=== PATIENT | female | born 1965 ===

== ENCOUNTER 2017-04-07 16:23 | Observation (INO) | payer MEDICAID ==
[2017-04-07] MEDS ORDERED: Sodium Chloride 0.9% 1,000 ML IV STA (16:49)
[2017-04-07 17:11] LABS: BASO % 0.3 % (0.0-2.0); EOS # 0.1 K/uL (0.0-0.7); EOS % 0.7 % (0.0-4.0); LYMPH # 2.8 K/uL (1.0-4.3); LYMPH % 20.8 % (20.0-40.0); MEAN CELL VOLUME 88.9 fl (81.0-99.0); MEAN CORPUSCULAR HGB CONC 33.8 g/dL (33.0-37.0); MEAN PLATELET VOLUME 8.2 fl (7.2-11.7); MONO # 0.8 K/uL (0.0-0.8); MONO % 6.1 % (0.0-10.0); NEUT # 9.7 K/uL (1.8-7.0); NEUT % 72.1 % (50.0-75.0); RBC 4.33 Mil/uL (3.80-5.20); RED CELL DISTRIBUTION WIDTH 12.9 % (11.5-14.5); WHITE BLOOD COUNT 13.5 K/uL (4.8-10.8)
[2017-04-07 17:15] LABS: ALB/GLOB RATIO 1.6 (1.0-2.1); ALBUMIN 4.6 g/dL (3.5-5.0); ALT/SGPT 49 U/L (9-52); AST/SGOT 32 U/L (14-36); BLOOD UREA NITROGEN 11 mg/dl (7-17); CALCIUM 9.2 mg/dL (8.4-10.2); GFR AFRICAN-AMERICAN > 60; GFR NON-AFRICAN AMERICAN > 60; MAGNESIUM 1.7 MG/DL (1.6-2.3)
--- NOTE | 2017-04-07 18:14 | ED PDOC ---
HPI: Seizure Time Seen by Provider: 04/07/17 16:41 Chief Complaint (Nursing): Altered Mental Status Chief Complaint (Provider): Seizure History Per: Patient History/Exam Limitations: no limitations Recent Seizure Activity Began: Hours Ago: Number Of Seizures: Multiple (Several seizure episodes throughout the day) Precipitating Factor(s): Decreased Sleep, Recent Change In Medication Or Dose Additional Complaint(s): 51 y/o female with a past medical history of seizures who presents to the emergency department after experiencing multiple seizure throughout the course of the day prior to arrival. Reports being non compliant with medications because of too much stress at home. Admits experiencing anxiety, decreased sleep , and not eating properly. Denies headache, focal weakness, blurry vision, use of drugs, or ingestion of alcohol. Of note, patient was given Versed on the field for seizure like activity. Past Medical History Reviewed: Historical Data, Nursing Documentation, Vital Signs Vital Signs: Last Vital Signs Temp 97.3 F L 04/08/17 08:08 Pulse 76 04/08/17 09:00 Resp 18 04/08/17 08:08 BP 115/69 04/08/17 08:08 Pulse Ox 99 04/08/17 08:08 - Medical History PMH: Anemia, Asthma, Depression, Diabetes, HTN, Hypercholesterolemia, Seizures, TIA Denies: Chronic Kidney Disease - Surgical History Surgical History: Cholecystectomy, - Family History Family History: States: Unknown Family Hx - Social History Current smoker - smoking cessation education provided: Yes Alcohol: None Drugs: Denies - Home Medications Home Medications: Ambulatory Orders Medication Instructions Recorded Acetaminophen/Butalbital/Caf 1 tab PO Q6H PRN 04/07/17 [Fioricet] Cyclobenzaprine [Flexeril] 10 mg PO BID PRN 04/07/17 Ferrous Sulfate [Ferosul] 325 mg PO DAILY 04/07/17 Oxcarbazepine [Trileptal] 900 mg PO BID 04/07/17 Valsartan [Diovan] 80 mg PO DAILY 04/07/17 Venlafaxine [Effexor XR] 112.5 mg PO QAM 04/07/17 hydroCHLOROthiazide [Hydrodiuril] 25 mg PO DAILY #30 tab 04/08/17 - Allergies Allergies/Adverse Reactions: Allergies Allergy/AdvReac Type Severity Reaction Status Date / Time oxycodone HCl [From Percocet] Allergy SWELLING Verified 06/18/16 20:25 tramadol Allergy RASH Verified 06/18/16 20:25 Review of Systems ROS Statement: Except As Marked, All Systems Reviewed And Found Negative Constitutional: Positive for: Other (No eating correctly) Eyes: Negative for: Vision Change (Blurry vision) Neurological: Positive for: Seizures. Negative for: Weakness (Focal weakness), Headache Psych: Positive for: Anxiety (with decreased sleep) Physical Exam - Reviewed Nursing Documentation Reviewed: Yes Vital Signs Reviewed: Yes - Physical Exam Appears: Positive for: Well (Tired appearing), Non-toxic, No Acute Distress Head Exam: Positive for: ATRAUMATIC, NORMAL INSPECTION, NORMOCEPHALIC Skin: Positive for: Normal Color, Warm, Dry Eye Exam: Positive for: Normal appearance. Negative for: Conjunctival injection ENT: Positive for: Normal ENT Inspection. Negative for: Pharyngeal Erythema Neck: Positive for: Normal, Supple Cardiovascular/Chest: Positive for: Regular Rate, Rhythm. Negative for: Murmur Respiratory: Positive for: Normal Breath Sounds. Negative for: Accessory Muscle Use, Respiratory Distress Gastrointestinal/Abdominal: Positive for: Normal Exam, Soft. Negative for: Tenderness Extremity: Positive for: Normal ROM. Negative for: Pedal Edema Neurologic/Psych: Positive for: Alert, Oriented - Laboratory Results Result Diagrams: 04/08/17 08:10 04/08/17 08:10 - ECG O2 Sat by Pulse Oximetry: 100 (RA) Pulse Ox Interpretation: Normal Medical Decision Making Medical Decision Making: Time: 16:47 Initial impression: Seizure Initial plan: --Electrocardiogram STAT --Drug Screen, Urine --ED Urine Dipstick (POC) --EKG-ED (EDNURTX) --Chest Portable (RAD) --Oxycarbazapine 900 mg PO --Sodium Chloride 1,000 ml IV 1,000 mls/hr --Plastic Shaper CONT --IV Insertion --AccuCheck --Reevaluation Time: 18:09 --Labs demonstrate no clinically significant lab abnormalities. --While in ER, pt had ~2 episodes of lethargy with minor extremity shaking, but was awake and answering questions. She reports this is what she has been experiencing as seizures --Admit to hospital routine: on Observation in Telemetry for seizure and recurrent under the care of Dr. Martha Cole MD 18:13 --Neurology Consult Routine: for recurrent seizure with Dr. Redd Singh MD Time: 19:31 --ED Urine Dipstick (POC) Scribe Attestation: Documented by Lucille Sykes, acting as a scribe for Ary Valdez MD. Provider Scribe Attestation: All medical record entries made by the Scribe were at my direction and personally dictated by me. I have reviewed the chart and agree that the record accurately reflects my personal performance of the history, physical exam, medical decision making, and the department course for this patient. I have also personally directed, reviewed, and agree with the discharge instructions and disposition. Disposition - Clinical Impression Clinical Impression: Altered mental status, Seizure Counseled Patient/Family Regarding: Studies Performed, Diagnosis - Disposition Disposition Time: 18:00 Condition: STABLE - Pt Status Changed To: Hospital Disposition Of: Observation - POA Present On Arrival: Falls Or Trauma
[2017-04-07] MEDS ORDERED: Apap-Butalbital-Caffeine 325-50-40mg Tab PO PRN (20:44)
[2017-04-07 23:50] VITALS: RESP 18
[2017-04-08] MEDS: Apap-Butalbital-Caffeine 325-50-40mg Tab PO PRN ×2 (05:22→11:29)
--- NOTE | 2017-04-08 07:42 | RAD ---
HISTORY: seizure COMPARISON: No prior. FINDINGS: LUNGS: No active pulmonary disease. PLEURA: No significant pleural effusion identified, no pneumothorax apparent. CARDIOVASCULAR: Normal. OSSEOUS STRUCTURES: No significant abnormalities. VISUALIZED UPPER ABDOMEN: Normal. OTHER FINDINGS: None. IMPRESSION: No active disease.
[2017-04-08 08:09] VITALS: BP 115/69; PULSE 76; TEMP 97.3
[2017-04-08] MEDS ORDERED: Venlafaxine 37.5 mg ER Cap PO SCH (09:00)
[2017-04-08 09:16] LABS: BASO % 0.4 % (0.0-2.0); EOS # 0.2 K/uL (0.0-0.7); EOS % 1.9 % (0.0-4.0); HEMOGLOBIN 13.5 g/dL (12.0-16.0); LYMPH # 3.1 K/uL (1.0-4.3); MEAN CELL VOLUME 89.2 fl (81.0-99.0); MEAN CORPUSCULAR HEMOGLOBIN 30.4 pg (27.0-31.0); MEAN CORPUSCULAR HGB CONC 34.1 g/dL (33.0-37.0); MEAN PLATELET VOLUME 8.1 fl (7.2-11.7); MONO # 0.6 K/uL (0.0-0.8); MONO % 5.8 % (0.0-10.0); NEUT # 6.3 K/uL (1.8-7.0); NEUT % 61.9 % (50.0-75.0); NRBC % 0.1 % (0.0-0.0); RBC 4.45 Mil/uL (3.80-5.20); RED CELL DISTRIBUTION WIDTH 12.6 % (11.5-14.5); WHITE BLOOD COUNT 10.2 K/uL (4.8-10.8)
[2017-04-08 09:33] LABS: ALB/GLOB RATIO 1.6 (1.0-2.1); ALBUMIN 4.6 g/dL (3.5-5.0); ALT/SGPT 42 U/L (9-52); AST/SGOT 33 U/L (14-36); BLOOD UREA NITROGEN 8 mg/dl (7-17); GFR AFRICAN-AMERICAN > 60; GFR NON-AFRICAN AMERICAN > 60; MAGNESIUM 1.9 MG/DL (1.6-2.3)
--- NOTE | 2017-04-08 10:27 | CP.PCM.CON ---
History of Present Illness - History of Present Illness History of Present Illness: NEURO CONSULT NOTE: 04/08/17 CHIEF COMPLAINT: SEIZURE HPI: THIS IS A 51 YEAR OLD WOMAN WITH HISTORY OF DEPRESSION, ANXIETY, ROXANNE ON SLEEP APNEA, SEIZURES ON TRILEPTAL, HTN, WHO CAME IN WITH BREAKTHROUGH SEIZURES. SHE HAS BEEN SLEEP DEPRIVED AND NOT BEING TAKING HER TRILEPTAL OR DEPRESSION MEDICATIONS. SHE IS STRESSED ABOUT HER MOMS HEALTH AND WAS EXTREMELY EMOTIONAL DURING MY CONSULTATION. CT HEAD SHOWED NO ACUTE ABNORMALITY. DR NIÑO IS HER NEUROLOGIST. ROS: 14 POINT REVIEW OF SYMPTOMS IS NEGATIVE PER HPI. ALLERGIES: OXYCODONE HCL, TRAMDOL. SOCIAL HISTORY: NO ILLICIT DRUG USE, SMOKING, OR ETOH USE. FAMILY: NON CONTRIBUTORY. MEDICATIONS: REVIEWED BY NURSE'S RECONCILIATION SHEET. PAST MEDICAL HISTORY: DEPRESSION, ANXIETY, ROXANNE ON SLEEP APNEA, SEIZURES ON TRILEPTAL, HTN, PHYSICAL EXAM: VITAL SIGNS: REVIEWED BY THE CHART GENERAL EXAM: PATIENT SEEN IN BED, IN NO ACUTE DISTRESS HEENT: PERRLA, EOMI, NECK SUPPLE, NO JVD, NO ADENOPATHY CVS: S1, S2, RRR, NO MURMURS NOTED LUNGS: CLEAR TO AUSCULTATION, NO ADVENTITIOUS SOUNDS ABDOMEN: SOFT AND NONTENDER EXTREMITIES: NO CLUBBING OR CYANOSIS. PP 2+ B/L NEURO: PT IS ALERT AND ORIENTED TO PERSON, PLACE, AND YEAR. , RECALL TO 5 MINUTES 3/3, SPEECH IS FLUENT WITHOUT ERRORS, CN II-XII INTACT, MOTOR EXAM: NORMAL TONE, NORMAL BULK OF MUSCLE, MOVES ALL EXTREMITIES EQUALLY, NO PRONATOR DRIFT SEEN. SENSORY EXAM: LIGHT TOUCH, PIN PRICK UP TO CALVES B/L, PROPRIOCEPTION , VIBRATION ARE INTACT B/L DEEP TENDON REFLEXES: 2+ THROUGHOUT. COORDINATION: FINGER TO NOSE IS INTACT. HEEL TO AMEZCUA IS INTACT GAIT: NORMAL. LABS: REVIEWED BY THE CHART. ASSESSMENT AND PLAN: THIS IS A 51 YEAR OLD WOMAN WITH HISTORY OF DEPRESSION, ANXIETY, ROXANNE ON SLEEP APNEA, SEIZURES ON TRILEPTAL, HTN, WHO CAME IN WITH BREAKTHROUGH SEIZURES. SHE HAS BEEN SLEEP DEPRIVED AND NOT BEING TAKING HER TRILEPTAL OR DEPRESSION MEDICATIONS. SHE IS STRESSED ABOUT HER MOMS HEALTH AND WAS EXTREMELY EMOTIONAL DURING MY CONSULTATION. IMPRESSION: BREAKTHROUGH SEIZURE SECONDARY TO SLEEP DEPRIVATION, NON COMPLIANCE WITH MEDICATIONS AND STRESS. 1. ASA 81 MG FOR STROKE PREVENTION 2.PSYCH CONSULT FOR DEPRESSION 3. FIORECET AT THE ACUTE ONSET OF HEADACHE. 4.C/W WITH HOME DOSE OF TRILEPTAL. 5. F/U WITH DR NIÑO HER NEUROLOGIST OUTPATIENT. THANK YOU. Jasmine RAMIRES MD Past Patient History - Infectious Disease Hx of Infectious Diseases: None - Past Medical History & Family History Past Medical History?: Yes - Past Social History Smoking Status: Never Smoked - CARDIAC Hx Cardiac Disorders: Yes Hx Hypercholesterolemia: Yes Hx Hypertension: Yes - PULMONARY Hx Respiratory Disorders: Yes Hx Asthma: Yes - NEUROLOGICAL Hx Neurological Disorder: Yes Hx Seizures: Yes Hx Transient Ischemic Attacks (TIA): Yes - HEENT Hx HEENT Problems: No - RENAL Hx Chronic Kidney Disease: No - ENDOCRINE/METABOLIC Hx Endocrine Disorders: Yes Hx Diabetes Mellitus Type 2: Yes - HEMATOLOGICAL/ONCOLOGICAL Hx Blood Disorders: Yes Hx AIDS: No Hx Anemia: Yes Hx Human Immunodeficiency Virus (HIV): No - INTEGUMENTARY Hx Dermatological Problems: No - MUSCULOSKELETAL/RHEUMATOLOGICAL Hx Musculoskeletal Disorders: Yes Hx Back Pain: Yes Hx Falls: Yes - GASTROINTESTINAL Hx Gastrointestinal Disorders: No - GENITOURINARY/GYNECOLOGICAL Hx Genitourinary Disorders: No - PSYCHIATRIC Hx Psychophysiologic Disorder: Yes Hx Depression: Yes Hx Substance Use: No - SURGICAL HISTORY Hx Section: Yes Hx Cholecystectomy: Yes - ANESTHESIA Hx Anesthesia: Yes Hx Anesthesia Reactions: No Hx Malignant Hyperthermia: No Has any member of the family had a problem w/ anesthesia?: No Meds Allergies/Adverse Reactions: Allergies Allergy/AdvReac Type Severity Reaction Status Date / Time oxycodone HCl [From Percocet] Allergy SWELLING Verified 06/18/16 20:25 tramadol Allergy RASH Verified 06/18/16 20:25 - Medications Medications: Current Medications Acetaminophen/Butalbital/Caffeine (Fioricet) 1 tab PO Q6H PRN PRN Reason: Migraine headache Last Admin: 04/08/17 05:22 Dose: 1 tab Cyclobenzaprine HCl (Flexeril) 10 mg PO BID PRN PRN Reason: Muscle spasm Ferrous Sulfate (Feosol) 325 mg PO DAILY [facility] Last Admin: 04/08/17 08:07 Dose: 325 mg Hydrochlorothiazide (Hydrodiuril) 25 mg PO DAILY [facility] Last Admin: 04/08/17 08:11 Dose: 25 mg Oxcarbazepine (Trileptal) 900 mg PO BID [facility] Last Admin: 04/08/17 08:07 Dose: 900 mg Valsartan (Diovan) 80 mg PO DAILY [facility] Last Admin: 04/08/17 08:11 Dose: 80 mg Venlafaxine HCl (Effexor Xr) 112.5 mg PO QAM [facility] Last Admin: 04/08/17 08:11 Dose: 112.5 mg Results - Vital Signs Recent Vital Signs: Last Vital Signs Temp 97.3 F L 04/08/17 08:08 Pulse 76 04/08/17 08:08 Resp 18 04/08/17 08:08 BP 115/69 04/08/17 08:08 Pulse Ox 99 04/08/17 08:08 - Labs Result Diagrams: 04/08/17 08:10 04/08/17 08:10 Labs: Laboratory Results - last 24 hr 04/08/17 04/08/17 04/08/17 05:11 08:10 08:10 WBC 10.2 RBC 4.45 Hgb 13.5 Hct 39.7 MCV 89.2 MCH 30.4 MCHC 34.1 RDW 12.6 Plt Count 379 MPV 8.1 Neut % (Auto) 61.9 Lymph % (Auto) 30.0 [place] % (Auto) 5.8 Eos % (Auto) 1.9 Baso % (Auto) 0.4 Neut # 6.3 Lymph # 3.1 [place] # 0.6 Eos # 0.2 Baso # 0.0 Sodium 136 Potassium 3.5 L Chloride 102 Carbon Dioxide 23 Anion Gap 15 BUN 8 Creatinine 0.6 L Est GFR ( Amer) > 60 Est GFR (Non-Af Amer) > 60 POC Glucose (mg/dL) 112 H Random Glucose 89 Calcium 9.0 Phosphorus 2.2 L Magnesium 1.9 Total Bilirubin 0.6 AST 33 ALT 42 Alkaline Phosphatase 135 H Total Creatine Kinase 158 H Total Protein 7.5 Albumin 4.6 Globulin 2.9 Albumin/Globulin Ratio 1.6
--- NOTE | 2017-04-08 10:28 | CP.PCM.HP ---
History of Present Illness - History of Present Illness History of Present Illness: pt admitted for multiple sz yesterday. has not been taking meds incl trileptal for sz d/o r/t depression. no f/c, n/v/d. no sz activity since ed. seen by neuroAdam irene neuro pending psych consult as pt is depresed r/t mother's ilness. pt has not been taking any meds x 3 days had er reported 5x sz yesterday , pt report 15-16 sz yesterday. Present on Admission - Present on Admission Any Indicators Present on Admission: No Review of Systems - Neurological Neurological: As Per HPI, Convulsions - Psychiatric Psychiatric: As Per HPI, Depression Past Patient History - Infectious Disease Hx of Infectious Diseases: None - Past Medical History & Family History Past Medical History?: Yes - Past Social History Smoking Status: Never Smoked - CARDIAC Hx Cardiac Disorders: Yes Hx Hypercholesterolemia: Yes Hx Hypertension: Yes - PULMONARY Hx Respiratory Disorders: Yes Hx Asthma: Yes - NEUROLOGICAL Hx Neurological Disorder: Yes Hx Seizures: Yes Hx Transient Ischemic Attacks (TIA): Yes - HEENT Hx HEENT Problems: No - RENAL Hx Chronic Kidney Disease: No - ENDOCRINE/METABOLIC Hx Endocrine Disorders: Yes Hx Diabetes Mellitus Type 2: Yes - HEMATOLOGICAL/ONCOLOGICAL Hx Blood Disorders: Yes Hx AIDS: No Hx Anemia: Yes Hx Human Immunodeficiency Virus (HIV): No - INTEGUMENTARY Hx Dermatological Problems: No - MUSCULOSKELETAL/RHEUMATOLOGICAL Hx Musculoskeletal Disorders: Yes Hx Back Pain: Yes Hx Falls: Yes - GASTROINTESTINAL Hx Gastrointestinal Disorders: No - GENITOURINARY/GYNECOLOGICAL Hx Genitourinary Disorders: No - PSYCHIATRIC Hx Psychophysiologic Disorder: Yes Hx Depression: Yes Hx Substance Use: No - SURGICAL HISTORY Hx Section: Yes Hx Cholecystectomy: Yes - ANESTHESIA Hx Anesthesia: Yes Hx Anesthesia Reactions: No Hx Malignant Hyperthermia: No Has any member of the family had a problem w/ anesthesia?: No Meds Allergies/Adverse Reactions: Allergies Allergy/AdvReac Type Severity Reaction Status Date / Time oxycodone HCl [From Percocet] Allergy SWELLING Verified 06/18/16 20:25 tramadol Allergy RASH Verified 06/18/16 20:25 Physical Exam - Constitutional Appears: Well, Non-toxic, No Acute Distress - Head Exam Head Exam: ATRAUMATIC, NORMAL INSPECTION, NORMOCEPHALIC - Eye Exam Eye Exam: EOMI, Normal appearance, PERRL Pupil Exam: NORMAL ACCOMODATION, PERRL - ENT Exam ENT Exam: Mucous Membranes Moist, Normal Exam - Neck Exam Neck exam: Positive for: Normal Inspection - Respiratory Exam Respiratory Exam: Clear to Auscultation Bilateral, NORMAL BREATHING PATTERN - Cardiovascular Exam Cardiovascular Exam: REGULAR RHYTHM, RRR, +S1, +S2 - GI/Abdominal Exam GI & Abdominal Exam: Normal Bowel Sounds, Soft. absent: Tenderness - Extremities Exam Extremities exam: Positive for: full ROM, normal capillary refill, normal inspection, pedal pulses present - Back Exam Back exam: FULL ROM, NORMAL INSPECTION - Neurological Exam Neurological exam: Alert, CN II-XII Intact, Normal Gait, Oriented x3, Reflexes Normal - Psychiatric Exam Psychiatric exam: Normal Affect, Normal Mood - Skin Skin Exam: Dry, Intact, Normal Color, Warm Results - Vital Signs Recent Vital Signs: Last Vital Signs Temp 97.3 F L 04/08/17 08:08 Pulse 76 04/08/17 08:08 Resp 18 04/08/17 08:08 BP 115/69 04/08/17 08:08 Pulse Ox 99 04/08/17 08:08 - Labs Result Diagrams: 04/08/17 08:10 04/08/17 08:10 Labs: Laboratory Results - last 24 hr 04/08/17 04/08/17 04/08/17 05:11 08:10 08:10 WBC 10.2 RBC 4.45 Hgb 13.5 Hct 39.7 MCV 89.2 MCH 30.4 MCHC 34.1 RDW 12.6 Plt Count 379 MPV 8.1 Neut % (Auto) 61.9 Lymph % (Auto) 30.0 [place] % (Auto) 5.8 Eos % (Auto) 1.9 Baso % (Auto) 0.4 Neut # 6.3 Lymph # 3.1 [place] # 0.6 Eos # 0.2 Baso # 0.0 Sodium 136 Potassium 3.5 L Chloride 102 Carbon Dioxide 23 Anion Gap 15 BUN 8 Creatinine 0.6 L Est GFR ( Amer) > 60 Est GFR (Non-Af Amer) > 60 POC Glucose (mg/dL) 112 H Random Glucose 89 Calcium 9.0 Phosphorus 2.2 L Magnesium 1.9 Total Bilirubin 0.6 AST 33 ALT 42 Alkaline Phosphatase 135 H Total Creatine Kinase 158 H Total Protein 7.5 Albumin 4.6 Globulin 2.9 Albumin/Globulin Ratio 1.6 Assessment & Plan (1) Seizure Assessment and Plan: restart trileptal neuro consult outpt f/u dc after psych consult Status: Acute (2) DVT prophylaxis Assessment and Plan: scd and ae hose ambulation Status: Acute (3) Depression Assessment and Plan: psych consult outpt f/u-pt has own psychiatrist. Status: Acute Decision To Admit - Pt Status Changed To: Hospital Disposition Of: Observation - . Bed Request Type: Telemetry Admitting Physician: Martha Cole
[2017-04-08 11:25] LABS: BARBITURATES, UR POSITIVE (NEGATIVE); BENZODIAZEPINES, UR POSITIVE (NEGATIVE); OPIATES, UR NEGATIVE (NEGATIVE); PHENCYCLIDINE, UR NEGATIVE (NEGATIVE)
[2017-04-08 22:28] VITALS: O2SAT 100
[2017-04-09 10:22] LABS: 10-HYDROXYCARBAZEPINE 34.5 mcg/mL (8.0-35.0)
--- NOTE | 2017-04-10 07:06 | CARD ---
APPROVED REPORT EKG Measurement Heart [id number] <Conclusion> Normal sinus rhythm Prolonged QT Abnormal ECG
--- NOTE | 2017-04-10 07:36 | CP.PCM.DIS ---
Provider - Provider Date of Admission: 04/07/17 18:09 Attending physician: Martha Cole MD Primary care physician: Martha Cole MD Time Spent in preparation of Discharge (in minutes): 15 Diagnosis - Discharge Diagnosis (1) Seizure Status: Acute (2) DVT prophylaxis Status: Acute (3) Depression Status: Acute Hospital Course - Lab Results Lab Results: Most Recent Lab Values WBC 10.2 K/uL (4.8-10.8) 04/08/17 08:10 RBC 4.45 Mil/uL (3.80-5.20) 04/08/17 08:10 Hgb 13.5 g/dL (12.0-16.0) 04/08/17 08:10 Hct 39.7 % (34.0-47.0) 04/08/17 08:10 MCV 89.2 fl (81.0-99.0) 04/08/17 08:10 MCH 30.4 pg (27.0-31.0) 04/08/17 08:10 MCHC 34.1 g/dL (33.0-37.0) 04/08/17 08:10 RDW 12.6 % (11.5-14.5) 04/08/17 08:10 Plt Count 379 K/uL (130-400) 04/08/17 08:10 MPV 8.1 fl (7.2-11.7) 04/08/17 08:10 Neut % (Auto) 61.9 % (50.0-75.0) 04/08/17 08:10 Lymph % (Auto) 30.0 % (20.0-40.0) 04/08/17 08:10 [place] % (Auto) 5.8 % (0.0-10.0) 04/08/17 08:10 Eos % (Auto) 1.9 % (0.0-4.0) 04/08/17 08:10 Baso % (Auto) 0.4 % (0.0-2.0) 04/08/17 08:10 Neut # 6.3 K/uL (1.8-7.0) 04/08/17 08:10 Lymph # 3.1 K/uL (1.0-4.3) 04/08/17 08:10 [place] # 0.6 K/uL (0.0-0.8) 04/08/17 08:10 Eos # 0.2 K/uL (0.0-0.7) 04/08/17 08:10 Baso # 0.0 K/uL (0.0-0.2) 04/08/17 08:10 Sodium 136 mmol/l (132-148) 04/08/17 08:10 Potassium 3.5 MMOL/L (3.6-5.0) L 04/08/17 08:10 Chloride 102 mmol/L (98-107) 04/08/17 08:10 Carbon Dioxide 23 mmol/L (22-30) 04/08/17 08:10 Anion Gap 15 (10-20) 04/08/17 08:10 BUN 8 mg/dl (7-17) 04/08/17 08:10 Creatinine 0.6 mg/dL (0.7-1.2) L 04/08/17 08:10 Est GFR ( Amer) > 60 04/08/17 08:10 Est GFR (Non-Af Amer) > 60 04/08/17 08:10 POC Glucose (mg/dL) 96 mg/dL (65-110) 04/08/17 11:25 Random Glucose 89 mg/dL (65-105) 04/08/17 08:10 Lactic Acid 1.0 MMOL/L (0.7-2.1) 04/07/17 16:50 Calcium 9.0 mg/dL (8.4-10.2) 04/08/17 08:10 Phosphorus 2.2 mg/dl (2.5-4.5) L 04/08/17 08:10 Magnesium 1.9 MG/DL (1.6-2.3) 04/08/17 08:10 Total Bilirubin 0.6 mg/dl (0.2-1.3) 04/08/17 08:10 AST 33 U/L (14-36) 04/08/17 08:10 ALT 42 U/L (9-52) 04/08/17 08:10 Alkaline Phosphatase 135 U/L (38-126) H 04/08/17 08:10 Total Creatine Kinase 158 U/L (30-135) H 04/08/17 08:10 Total Protein 7.5 G/DL (6.3-8.2) 04/08/17 08:10 Albumin 4.6 g/dL (3.5-5.0) 04/08/17 08:10 Globulin 2.9 gm/dL (2.2-3.9) 04/08/17 08:10 Albumin/Globulin Ratio 1.6 (1.0-2.1) 04/08/17 08:10 Urine Opiates Screen Negative (NEGATIVE) 04/07/17 10:55 Urine Methadone Screen Negative (NEGATIVE) 04/07/17 10:55 Ur Barbiturates Screen Positive (NEGATIVE) H 04/07/17 10:55 10-Hydroxycarbazepine 34.5 mcg/mL (8.0-35.0) 04/07/17 18:55 Ur Phencyclidine Scrn Negative (NEGATIVE) 04/07/17 10:55 Ur Amphetamines Screen Negative (NEGATIVE) 04/07/17 10:55 U Benzodiazepines Scrn Positive (NEGATIVE) H 04/07/17 10:55 U Oth Cocaine Metabols Negative (NEGATIVE) 04/07/17 10:55 U Cannabinoids Screen Negative (NEGATIVE) 04/07/17 10:55 Alcohol, Quantitative < 10 mg/dl (0-10) 04/07/17 16:50 Discharge Exam - Head Exam Head Exam: ATRAUMATIC, NORMAL INSPECTION, NORMOCEPHALIC Discharge Plan - Discharge Medications Prescriptions: hydroCHLOROthiazide [Hydrodiuril] 25 mg PO DAILY #30 tab - Follow Up Plan Condition: STABLE Disposition: HOME/ ROUTINE Instructions: Depression (DC), Recurrent Seizures in Adults (DC) Additional Instructions: pt does not wish to wait for psych. as she has her own and is not si/hi will dc home for outpt f/u. pt verbalized the importance of taking anti sz meds., was cleared for dc by neuro final dx-sz, noncompliance w/ therapy Referrals: Martha Coel MD [Primary Care Provider] -
== END 2017-04-08 14:00 | disposition home or self-care (01) ==
LOC: H.ER 16:23 → H.EROBSV 18:09 → UNDODISOB 20:55 → H.TEL 21:28
PROVIDERS: ADMIT Family Medicine; ATTEND Family Medicine
DX: G40.509 Epileptic seizures related to external causes, not intractable, without status epilepticus (principal); Z91.14 Patient's other noncompliance with medication regimen; Z91.19 Patient's noncompliance with other medical treatment and regimen; G47.33 Obstructive sleep apnea (adult) (pediatric); Z72.820 Sleep deprivation; J45.909 Unspecified asthma, uncomplicated; F32.9 Major depressive disorder, single episode, unspecified; F41.9 Anxiety disorder, unspecified; E11.9 Type 2 diabetes mellitus without complications; I10 Essential (primary) hypertension; E78.00 Pure hypercholesterolemia, unspecified; Z86.73 Personal history of transient ischemic attack (TIA), and cerebral infarction without residual deficits; F17.200 Nicotine dependence, unspecified, uncomplicated; Z88.6 Allergy status to analgesic agent; Z88.5 Allergy status to narcotic agent

== ENCOUNTER 2017-05-29 18:32 | Emergency (ER) | payer MEDICAID ==
[2017-05-29 18:44] VITALS: BP 109/66; PULSE 81; RESP 20; TEMP 98.6; O2SAT 99
[2017-05-29 19:54] LABS: ALB/GLOB RATIO 1.4 (1.0-2.1); ALKALINE PHOSPHATASE 123 U/L (38-126); ALT/SGPT 46 U/L (9-52); AST/SGOT 26 U/L (14-36); BILIRUBIN,TOTAL 0.5 mg/dl (0.2-1.3); BLOOD UREA NITROGEN 12 mg/dl (7-17); CALCIUM 9.5 mg/dL (8.4-10.2); CARBON DIOXIDE 25 mmol/L (22-30); CHLORIDE 97 mmol/L (98-107); GFR AFRICAN-AMERICAN > 60; GLUCOSE,RANDOM 94 mg/dL (65-105); POTASSIUM 3.7 MMOL/L (3.6-5.0); SODIUM 133 mmol/l (132-148); TOTAL PROTEIN 7.4 G/DL (6.3-8.2)
[2017-05-29 20:02] LABS: BASO % 0.5 % (0.0-2.0); EOS # 0.2 K/uL (0.0-0.7); HEMATOCRIT 36.7 % (34.0-47.0); LYMPH # 2.6 K/uL (1.0-4.3); LYMPH % 27.4 % (20.0-40.0); MEAN CELL VOLUME 89.3 fl (81.0-99.0); MEAN CORPUSCULAR HEMOGLOBIN 30.4 pg (27.0-31.0); MEAN PLATELET VOLUME 8.3 fl (7.2-11.7); MONO # 0.7 K/uL (0.0-0.8); MONO % 7.2 % (0.0-10.0); NEUT % 62.9 % (50.0-75.0); NRBC % 0.1 % (0.0-0.0); RED CELL DISTRIBUTION WIDTH 12.5 % (11.5-14.5); WHITE BLOOD COUNT 9.6 K/uL (4.8-10.8)
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
[2017-05-29] MEDS ORDERED: Apap-Butalbital-Caffeine 325-50-40mg Tab PO STA (22:09)
[2017-05-29] MEDS ORDERED: Apap-Butalbital-Caffeine 325-50-40mg Tab ONE (22:35)
--- NOTE | 2017-05-30 09:38 | RAD ---
HISTORY: chest pain COMPARISON: 04/07/2017 FINDINGS: The right-sided FLIGHT CONTROLS ENGINEER shunt tube is identified. LUNGS: The lungs are well inflated and clear. PLEURA: No significant pleural effusion identified, no pneumothorax apparent. CARDIOVASCULAR: Normal. OSSEOUS STRUCTURES: No significant abnormalities. VISUALIZED UPPER ABDOMEN: Normal. OTHER FINDINGS: None. IMPRESSION: No acute findings.
--- NOTE | 2017-05-30 11:25 | CARD ---
APPROVED REPORT EKG Measurement Heart [id number] <Conclusion> Normal sinus rhythm Normal ECG
== END 2017-05-29 22:41 | disposition home or self-care (01) ==
LOC: H.ER 18:32
DX: R07.89 Other chest pain (principal); F41.9 Anxiety disorder, unspecified; E11.9 Type 2 diabetes mellitus without complications; F32.9 Major depressive disorder, single episode, unspecified; G89.29 Other chronic pain; I10 Essential (primary) hypertension; J45.909 Unspecified asthma, uncomplicated; Z86.73 Personal history of transient ischemic attack (TIA), and cerebral infarction without residual deficits; Z91.14 Patient's other noncompliance with medication regimen; Z98.2 Presence of cerebrospinal fluid drainage device
CPT/HCPCS: 71010; 80053; 84484; 85025; 93005; 96374; 99282; J1885; J2060

== ENCOUNTER 2017-05-30 03:01 | Emergency (ER) | payer MEDICAID ==
[2017-05-30 03:12] VITALS: BP 116/72; PULSE 80; RESP 18; TEMP 97.3; O2SAT 96
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
== END 2017-05-30 04:00 | disposition home or self-care (01) ==
LOC: H.ER 03:01
DX: F41.9 Anxiety disorder, unspecified (principal); E11.9 Type 2 diabetes mellitus without complications; I10 Essential (primary) hypertension; Z86.73 Personal history of transient ischemic attack (TIA), and cerebral infarction without residual deficits

== ENCOUNTER 2017-08-31 06:48 | Observation (INO) | payer MEDICAID ==
--- NOTE | 2017-08-31 07:38 | ED PDOC ---
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 He states that he also feels anxious. The patient denies shortness of breath. 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 - Family History Family History: States: Unknown Family Hx - Home Medications Home Medications: Ambulatory Orders Medication Instructions Recorded Acetaminophen/Butalbital/Caf 1 tab PO Q6H PRN 04/07/17 [Fioricet] Cyclobenzaprine [Flexeril] 10 mg PO BID PRN 04/07/17 Ferrous Sulfate [Ferosul] 325 mg PO DAILY 04/07/17 Oxcarbazepine [Trileptal] 900 mg PO BID 04/07/17 Valsartan [Diovan] 80 mg PO DAILY 04/07/17 Venlafaxine [Effexor XR] 112.5 mg PO QAM 04/07/17 hydroCHLOROthiazide [Hydrodiuril] 25 mg PO DAILY #30 tab 04/08/17 Acetaminophen/Butalbital/Caf 1 - 2 tab PO Q6 PRN #20 tab 05/29/17 [Fioricet] - Allergies Allergies/Adverse Reactions: Allergies Allergy/AdvReac Type Severity Reaction Status Date / Time oxycodone HCl [From Percocet] Allergy SWELLING Verified 06/18/16 20:25 tramadol Allergy RASH Verified 06/18/16 20:25 Review of Systems ROS Statement: Except As Marked, All Systems Reviewed And Found Negative Cardiovascular: Positive for: Chest Pain Respiratory: Negative for: Shortness of Breath Psych: Positive for: Anxiety Physical Exam - Reviewed Nursing Documentation Reviewed: Yes Vital Signs Reviewed: Yes - Physical Exam Appears: Positive for: Non-toxic, No Acute Distress Head Exam: Positive for: ATRAUMATIC, NORMAL INSPECTION, NORMOCEPHALIC Skin: Positive for: Normal Color, Warm, Dry. Negative for: Rash Eye Exam: Positive for: Normal appearance, EOMI, PERRL. Negative for: Nystagmus ENT: Positive for: Normal ENT Inspection Neck: Positive for: Normal, Painless ROM, Supple Cardiovascular/Chest: Positive for: Regular Rate, Rhythm, Chest Non Tender. Negative for: Tachycardia Respiratory: Positive for: Normal Breath Sounds (lungs clear b/l). Negative for : Rales, Rhonchi, Wheezing, Respiratory Distress Gastrointestinal/Abdominal: Positive for: Normal Exam, Bowel Sounds, Soft. Negative for: Mass, Guarding, Rebound Back: Positive for: Normal Inspection. Negative for: L CVA Tenderness, R CVA Tenderness Extremity: Positive for: Normal ROM. Negative for: Tenderness, Deformity, Swelling Lymphatic: Positive for: Normal Exam. Negative for: Adenopathy Neurologic/Psych: Positive for: Alert, Oriented, Gait - Laboratory Results Result Diagrams: 08/31/17 07:39 08/31/17 07:39 Medical Decision Making Medical Decision Makin Initial Impression 52 y/o female presenting with chest pain Initial Plan: * CT Head w/o Contrast * EKG * CMP * Troponin * Upreg * Udip * CBC * CXR * Reevaluation Scribe Attestation Documented by Kassy Casarez acting as a scribe for Robin Fried MD. Provider Attestation All medical record entries made by the Scribe were at my direction and personally dictated by me. I have reviewed the chart and agree that the record accurately reflects my personal performance of the history, physical exam, medical decision making, and the department course for this patient. I have also personally directed, reviewed, and agree with the discharge instructions and disposition. Disposition - Clinical Impression Clinical Impression: Chest pain - Patient ED Disposition Is Patient to be Admitted: Yes - Disposition Disposition Time: 09:51 Condition: FAIR - Pt Status Changed To: Hospital Disposition Of: Observation - POA Present On Arrival: None
[2017-08-31 08:14] LABS: BASO % 0.3 % (0.0-2.0); EOS # 0.1 K/uL (0.0-0.7); EOS % 0.7 % (0.0-4.0); HEMATOCRIT 37.9 % (34.0-47.0); LYMPH # 2.2 K/uL (1.0-4.3); LYMPH % 21.1 % (20.0-40.0); MEAN CELL VOLUME 89.3 fl (81.0-99.0); MEAN CORPUSCULAR HEMOGLOBIN 30.2 pg (27.0-31.0); MEAN CORPUSCULAR HGB CONC 33.8 g/dL (33.0-37.0); MEAN PLATELET VOLUME 8.2 fl (7.2-11.7); MONO # 0.8 K/uL (0.0-0.8); MONO % 7.3 % (0.0-10.0); NEUT # 7.3 K/uL (1.8-7.0); NEUT % 70.6 % (50.0-75.0); RED CELL DISTRIBUTION WIDTH 12.6 % (11.5-14.5); WHITE BLOOD COUNT 10.4 K/uL (4.8-10.8)
[2017-08-31 08:19] LABS: ALB/GLOB RATIO 1.4 (1.0-2.1); ALKALINE PHOSPHATASE 142 U/L (38-126); ALT/SGPT 70 U/L (9-52); AST/SGOT 38 U/L (14-36); BILIRUBIN,TOTAL 0.4 mg/dl (0.2-1.3); BLOOD UREA NITROGEN 13 mg/dl (7-17); CALCIUM 9.3 mg/dL (8.4-10.2); CARBON DIOXIDE 26 mmol/L (22-30); CHLORIDE 95 mmol/L (98-107); GFR AFRICAN-AMERICAN > 60; GLUCOSE,RANDOM 109 mg/dL (65-105); POTASSIUM 3.6 MMOL/L (3.6-5.0); SODIUM 132 mmol/l (132-148); TOTAL PROTEIN 7.9 G/DL (6.3-8.2)
--- NOTE | 2017-08-31 08:42 | CT ---
PROCEDURE: CT HEAD WITHOUT CONTRAST. HISTORY: r/o bleed COMPARISON: None available. TECHNIQUE: Axial computed tomography images were obtained through the head/brain without intravenous contrast. Radiation dose: Total exam DLP = no prior studies are available for direct comparison. MGy-cm. This CT exam was performed using one or more of the following dose reduction techniques: Automated exposure control, adjustment of the mA and/or kV according to patient size, and/or use of iterative reconstruction technique. FINDINGS: HEMORRHAGE: No intracranial hemorrhage. BRAIN: There appears to be evidence of Chiari 1 malformation on the sagittal images. There is evidence of a posterior right right parietal ventriculoperitoneal shunt catheter with its tip extending towards the left frontal horn region. No prior studies are available to assess for interval change in position. There is a mild amount of encephalomalacia adjacent to the proximal portion of the shunt catheter in the right parietal lobe region. No extra-axial collection is seen. Diffuse cerebral cortical atrophy is noted. Mild small vessel changes are suspected in the white matter tracts. No recent infarct is noted. VENTRICLES: Ventricles are small in size and midline. CALVARIUM: No lytic process seen. PARANASAL SINUSES: Unremarkable as visualized. No significant inflammatory changes. MASTOID AIR CELLS: Unremarkable as visualized. No inflammatory changes. OTHER FINDINGS: There is dolichoectasia of the basilar artery. Pituitary gland and sella are unremarkable. Retro-orbital regions are within normal limits. IMPRESSION: No evidence of intracranial hemorrhage or extra-axial collection. No appreciable recent infarct. There appears to be is suggestion of Chiari 1 malformation with moderate tonsillar ectopia noted. Right posterior parietal shunt catheter which appears to have its tip extending to the left frontal horn. Ventricles are small in size but midline. Comparison to prior exams is suggested.
--- NOTE | 2017-08-31 08:46 | RAD ---
HISTORY: chest pain COMPARISON: 05/29/2017 TECHNIQUE: Chest PA and lateral FINDINGS: LUNGS: No active pulmonary disease. PLEURA: No significant pleural effusion identified. No pneumothorax apparent. CARDIOVASCULAR: Heart is unchanged in size. No CHF is seen. OSSEOUS STRUCTURES: Degenerative changes are seen in the thoracic spine. VISUALIZED UPPER ABDOMEN: Normal. OTHER FINDINGS: There is a right-sided ventricular peritoneal shunt catheter noted overlying the chest. Visualized portions of the catheter appear grossly intact. IMPRESSION: No active disease. Visualized shunt catheter appears intact.
--- NOTE | 2017-08-31 12:16 | CARD ---
APPROVED REPORT EKG Measurement Heart [id number] <Conclusion> Normal sinus rhythm Nonspecific ST abnormality Abnormal ECG
[2017-08-31] MEDS: Apap-Butalbital-Caffeine 325-50-40mg Tab PO PRN (16:17)
[2017-08-31] MEDS ORDERED: Apap-Butalbital-Caffeine 325-50-40mg Tab PO PRN (17:23)
[2017-09-01] MEDS: Apap-Butalbital-Caffeine 325-50-40mg Tab PO PRN ×2 (00:33→07:03)
[2017-09-01 05:04] VITALS: RESP 18
[2017-09-01 05:54] LABS: BASO % 0.5 % (0.0-2.0); EOS # 0.2 K/uL (0.0-0.7); EOS % 1.8 % (0.0-4.0); HEMATOCRIT 39.4 % (34.0-47.0); LYMPH # 2.6 K/uL (1.0-4.3); LYMPH % 27.8 % (20.0-40.0); MEAN CELL VOLUME 90.3 fl (81.0-99.0); MEAN CORPUSCULAR HEMOGLOBIN 30.8 pg (27.0-31.0); MEAN CORPUSCULAR HGB CONC 34.1 g/dL (33.0-37.0); MEAN PLATELET VOLUME 7.9 fl (7.2-11.7); MONO # 0.7 K/uL (0.0-0.8); NEUT # 5.9 K/uL (1.8-7.0); NEUT % 62.9 % (50.0-75.0); RED CELL DISTRIBUTION WIDTH 12.6 % (11.5-14.5); WHITE BLOOD COUNT 9.3 K/uL (4.8-10.8)
[2017-09-01 06:14] LABS: ALB/GLOB RATIO 1.4 (1.0-2.1); ALKALINE PHOSPHATASE 126 U/L (38-126); ALT/SGPT 56 U/L (9-52); AST/SGOT 28 U/L (14-36); BILIRUBIN,TOTAL 0.4 mg/dl (0.2-1.3); BLOOD UREA NITROGEN 10 mg/dl (7-17); CALCIUM 9.1 mg/dL (8.4-10.2); CARBON DIOXIDE 26 mmol/L (22-30); CHLORIDE 95 mmol/L (98-107); GFR AFRICAN-AMERICAN > 60; GLUCOSE,RANDOM 136 mg/dL (65-105); POTASSIUM 3.3 MMOL/L (3.6-5.0); SODIUM 132 mmol/l (132-148); TOTAL PROTEIN 7.8 G/DL (6.3-8.2)
--- NOTE | 2017-09-01 07:14 | CP.PCM.HP ---
History of Present Illness - History of Present Illness History of Present Illness: pt admitted for cp. no f/c, n/v/d. no radiation or provoking factors except laughing. no other complaints. trops x 3 negative. k noted. cardio consult pending. Present on Admission - Present on Admission Any Indicators Present on Admission: No Review of Systems - Cardiovascular Cardiovascular: As Per HPI, Chest Pain Past Patient History - Infectious Disease Hx of Infectious Diseases: None - Past Medical History & Family History Past Medical History?: Yes - Past Social History Smoking Status: Never Smoked - CARDIAC Hx Cardiac Disorders: Yes Hx Hypercholesterolemia: Yes Hx Hypertension: Yes - PULMONARY Hx Asthma: Yes - NEUROLOGICAL Hx Neurological Disorder: Yes HX Cerebrovascular Accident: Yes (TIA) Hx Seizures: Yes - HEENT Hx HEENT Problems: No - RENAL Hx Chronic Kidney Disease: No - ENDOCRINE/METABOLIC Hx Endocrine Disorders: Yes Hx Diabetes Mellitus Type 2: No (denies) - HEMATOLOGICAL/ONCOLOGICAL Hx Blood Disorders: Yes Hx Anemia: Yes - INTEGUMENTARY Hx Dermatological Problems: No - MUSCULOSKELETAL/RHEUMATOLOGICAL Hx Musculoskeletal Disorders: Yes Hx Arthritis: Yes Hx Back Pain: Yes Hx Falls: No - GASTROINTESTINAL Hx Gastrointestinal Disorders: No - GENITOURINARY/GYNECOLOGICAL Hx Genitourinary Disorders: No Hx Sexually Transmitted Disorders: No - PSYCHIATRIC Hx Psychophysiologic Disorder: Yes Hx Anxiety: Yes Hx Depression: Yes Hx Substance Use: No - SURGICAL HISTORY Hx Surgeries: Yes Hx Cholecystectomy: Yes Other/Comment: 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 ( H/O Hydrocephalus) - ANESTHESIA Hx Anesthesia: Yes Hx Anesthesia Reactions: No Hx Malignant Hyperthermia: No Meds Home Medications: Home Medication List Medication Instructions Recorded Confirmed Type Aspirin [Aspirin Chewable] 81 mg PO DAILY chew 09/01/17 Rx Allergies/Adverse Reactions: Allergies Allergy/AdvReac Type Severity Reaction Status Date / Time oxycodone HCl [From Percocet] Allergy SWELLING Verified 06/18/16 20:25 tramadol Allergy RASH Verified 06/18/16 20:25 Physical Exam - Constitutional Appears: Well, Non-toxic, No Acute Distress - Head Exam Head Exam: ATRAUMATIC, NORMAL INSPECTION, NORMOCEPHALIC - Eye Exam Eye Exam: EOMI, Normal appearance, PERRL Pupil Exam: NORMAL ACCOMODATION, PERRL - ENT Exam ENT Exam: Mucous Membranes Moist, Normal Exam - Neck Exam Neck exam: Positive for: Normal Inspection - Respiratory Exam Respiratory Exam: Clear to Auscultation Bilateral, NORMAL BREATHING PATTERN - Cardiovascular Exam Cardiovascular Exam: REGULAR RHYTHM, RRR, +S1, +S2 - GI/Abdominal Exam GI & Abdominal Exam: Normal Bowel Sounds, Soft. absent: Tenderness - Extremities Exam Extremities exam: Positive for: full ROM, normal capillary refill, normal inspection, pedal pulses present - Back Exam Back exam: NORMAL INSPECTION - Neurological Exam Neurological exam: Alert, CN II-XII Intact, Normal Gait, Oriented x3, Reflexes Normal - Psychiatric Exam Psychiatric exam: Normal Affect, Normal Mood - Skin Skin Exam: Dry, Intact, Normal Color, Warm Results - Vital Signs Recent Vital Signs: Last Vital Signs Temp 97.5 F L 09/01/17 05:03 Pulse 74 09/01/17 05:03 Resp 18 09/01/17 05:03 BP 127/78 09/01/17 05:03 Pulse Ox 99 09/01/17 05:03 - Labs Result Diagrams: 09/01/17 05:40 09/01/17 05:40 Labs: Laboratory Results - last 24 hr 08/31/17 08/31/17 08/31/17 07:39 07:39 16:20 WBC 10.4 RBC 4.24 Hgb 12.8 Hct 37.9 MCV 89.3 MCH 30.2 MCHC 33.8 RDW 12.6 Plt Count 345 MPV 8.2 Neut % (Auto) 70.6 Lymph % (Auto) 21.1 [place] % (Auto) 7.3 Eos % (Auto) 0.7 Baso % (Auto) 0.3 Neut # 7.3 H Lymph # 2.2 [place] # 0.8 Eos # 0.1 Baso # 0.0 Sodium 132 Potassium 3.6 Chloride 95 L Carbon Dioxide 26 Anion Gap 15 BUN 13 Creatinine 0.5 L Est GFR ( Amer) > 60 Est GFR (Non-Af Amer) > 60 Random Glucose 109 H Calcium 9.3 Total Bilirubin 0.4 AST 38 H ALT 70 H D Alkaline Phosphatase 142 H Troponin I < 0.0120 < 0.0120 Total Protein 7.9 Albumin 4.7 Globulin 3.3 Albumin/Globulin Ratio 1.4 09/01/17 09/01/17 05:40 05:40 WBC 9.3 RBC 4.36 Hgb 13.4 Hct 39.4 MCV 90.3 MCH 30.8 MCHC 34.1 RDW 12.6 Plt Count 354 MPV 7.9 Neut % (Auto) 62.9 Lymph % (Auto) 27.8 [place] % (Auto) 7.0 Eos % (Auto) 1.8 Baso % (Auto) 0.5 Neut # 5.9 Lymph # 2.6 [place] # 0.7 Eos # 0.2 Baso # 0.0 Sodium 132 Potassium 3.3 L Chloride 95 L Carbon Dioxide 26 Anion Gap 14 BUN 10 Creatinine 0.5 L Est GFR ( Amer) > 60 Est GFR (Non-Af Amer) > 60 Random Glucose 136 H Calcium 9.1 Total Bilirubin 0.4 AST 28 ALT 56 H Alkaline Phosphatase 126 Troponin I < 0.0120 Total Protein 7.8 Albumin 4.6 Globulin 3.3 Albumin/Globulin Ratio 1.4 Assessment & Plan (1) Chest pain Assessment and Plan: trops x 3, cp free at present cardio consult pending asa Status: Acute (2) DVT prophylaxis Assessment and Plan: scd and aehose ambulation Status: Acute Decision To Admit - Pt Status Changed To: Hospital Disposition Of: Observation - . Bed Request Type: Telemetry Admitting Physician: Martha Cole
[2017-09-01] MEDS ORDERED: Potassium Chloride 20 mEq ER Tab PO ONE (08:30)
[2017-09-01] MEDS ORDERED: Venlafaxine 37.5 mg ER Cap PO SCH (09:00)
--- NOTE | 2017-09-01 10:57 | CP.PCM.CON ---
History of Present Illness - History of Present Illness History of Present Illness: I was asked to evaluate patient by Dr Ruiz. Patient is a 52 year old female with PMH HTn s/p [employer]CHIT[employer] shybnt who presents with palpitaitons. The patient states she was at home abnd had the onset of rapid heart beat. Symptoms persisted and therefore she presented to [facility]. there have been no events on the monitor Review of Systems - Constitutional Constitutional: absent: As Per HPI, Anorexia, Chills, Daytime Sleepiness, Excessive Sweating, Fatigue, Fever, Frequent Falls, Headache, Increased Appetite , Lethargy, Malaise, Night Sweats, Snoring, Sleep Apnea, Weight Gain, Weight Loss, Weakness, Other - EENT Eyes: absent: As Per HPI, Blind Spots, Blurred Vision, Change in Vision, Decreased Night Vision, Diplopia, Discharge, Dry Eye, Exophthalmos, Floaters, Irritation, Itchy Eyes, Loss of Peripheral Vision, Pain, Photophobia, Requires Corrective Lenses, Sees Flashes, Spots in Vision, Tunnel Vision, Other Visual Disturbances, Loss of Vision, Other Ears: absent: As Per HPI, Decreased Hearing, Ear Discharge, Ear Pain, Tinnitus, Abnormal Hearing, Disequilibrium, Dizziness, Other Nose/Mouth/Throat: absent: As Per HPI, Epistaxis, Nasal Congestion, Nasal Discharge, Nasal Obstruction, Nasal Trauma, Nose Pain, Post Nasal Drip, Sinus Pain, Sinus Pressure, Bleeding Gums, Change in Voice, Dental Pain, Dry Mouth, Dysphagia, Halitosis, Hoarsness, Lip Swelling, Mouth Lesions, Mouth Pain, Odynophagia, Sore Throat, Throat Swelling, Tongue Swelling, Facial Pain, Neck Pain, Neck Mass, Other - Cardiovascular Cardiovascular: Dyspnea, Palpitations - Respiratory Respiratory: Dyspnea - Gastrointestinal Gastrointestinal: absent: As Per HPI, Abdominal Pain, Belching, Bloating, Change in Bowel Habits, Change in Stool Character, Coffee Ground Emesis, Constipation, Cramping, Diarrhea, Dyspepsia, Dysphagia, Early Satiety, Excessive Flatus, Fecal Incontinence, Heartburn, Hematemesis, Hematochezia, Loose Stools, Melena, Nausea, Odynophagia, Temesmus, Vomiting, Other - Genitourinary Genitourinary: absent: As Per HPI, Change in Urinary Stream, Difficulty Urinating, Dysuria, Flank Pain, Hematuria, Pyuria, Nocturia, Urinary Incontinence, Urinary Frequency, Urinary Hesitance, Urinary Urgency, Voiding Freq/Small Amts, Freq UTI, Hx Renal/Bladder Calculi, Hx /Renal Surgery, Bladder Distension, Other - Musculoskeletal Musculoskeletal: absent: As Per HPI, Abnormal Gait, Arthralgias, Atrophy, Back Pain, Deformity, Joint Swelling, Limited Range of Motion, Loss of Height, Muscle Cramps, Muscle Weakness, Myalgias, Neck Pain, Numbness, Radiating Pain into Limb, Stiffness, Tingling, Other - Integumentary Integumentary: absent: As Per HPI, Acne, Alopecia, Bleeding Lesions, Change in Hair, Change in Nails, Change in Pigmentation, Changing Lesions, Dry Skin, Erythema, Furuncle, Hirsutism, Lesions, New Lesions, Non-Healing Lesions, Photosensitivity, Pruritus, Rash, Skin Pain, Skin Ulcer, Sores, Striae, Swelling , Unusual Bruising, Wounds, Jaundice, Other - Neurological Neurological: absent: As Per HPI, Abnormal Gait, Abnormal Hearing, Abnormal Movements, Abnormal Speech, Behavioral Changes, Burning Sensations, Confusion, Convulsions, Disequilibrium, Dizziness, Numbness, Focal Weakness, Frequent Falls , Headaches, Lack of Coordination, Loss of Vision, Memory Loss, Paresthesias, Radicular Pain, Restless Legs, Sensory Deficit, Syncope, Tingling, Tremor, Vertigo, Weakness, Other Visual Disturbances, Other - Psychiatric Psychiatric: absent: As Per HPI, Abnormal Sleep Pattern, Anhedonia, Anxiety, Auditory Hallucinations, Behavioral Changes, Change in Appetite, Change in Libido, Confusion, Depression, Difficulty Concentrating, Hallucinations, Homicidal Ideation, Hopelessness, Irritability, Memory Loss, Mood Swings, Panic Attacks, Paranoia, Suicidal Ideation, Visual Hallucinations, Tactile Hallucinations, Other - Endocrine Endocrine: absent: As Per HPI, Change in Body Appearance, Change in Libido, Cold Intolorance, Deepening of Voice, Excessive Sweating, Fatigue, Flushing, Heat Intolorance, Increase in Ring/Shoe/Hat Size, Palpitations, Polydipsia, Polyphagia, Polyuria, Other - Hematologic/Lymphatic Hematologic: absent: As Per HPI, Easy Bleeding, Easy Bruising, Lymphadenopathy, Other Past Patient History - Infectious Disease Hx of Infectious Diseases: None - Past Medical History & Family History Past Medical History?: Yes - Past Social History Smoking Status: Never Smoked - CARDIAC Hx Cardiac Disorders: Yes Hx Hypercholesterolemia: Yes Hx Hypertension: Yes - PULMONARY Hx Asthma: Yes - NEUROLOGICAL Hx Neurological Disorder: Yes HX Cerebrovascular Accident: Yes (TIA) Hx Seizures: Yes - HEENT Hx HEENT Problems: No - RENAL Hx Chronic Kidney Disease: No - ENDOCRINE/METABOLIC Hx Endocrine Disorders: Yes Hx Diabetes Mellitus Type 2: No (denies) - HEMATOLOGICAL/ONCOLOGICAL Hx Blood Disorders: Yes Hx Anemia: Yes - INTEGUMENTARY Hx Dermatological Problems: No - MUSCULOSKELETAL/RHEUMATOLOGICAL Hx Musculoskeletal Disorders: Yes Hx Arthritis: Yes Hx Back Pain: Yes Hx Falls: No - GASTROINTESTINAL Hx Gastrointestinal Disorders: No - GENITOURINARY/GYNECOLOGICAL Hx Genitourinary Disorders: No Hx Sexually Transmitted Disorders: No - PSYCHIATRIC Hx Psychophysiologic Disorder: Yes Hx Anxiety: Yes Hx Depression: Yes Hx Substance Use: No - SURGICAL HISTORY Hx Surgeries: Yes Hx Cholecystectomy: Yes Other/Comment: BI DATA ARCHITECT shunt ( H/O Hydrocephalus) - ANESTHESIA Hx Anesthesia: Yes Hx Anesthesia Reactions: No Hx Malignant Hyperthermia: No Meds Home Medications: Home Medication List Medication Instructions Recorded Confirmed Type Aspirin [Aspirin Chewable] 81 mg PO DAILY chew 09/01/17 Rx Allergies/Adverse Reactions: Allergies Allergy/AdvReac Type Severity Reaction Status Date / Time oxycodone HCl [From Percocet] Allergy SWELLING Verified 06/18/16 20:25 tramadol Allergy RASH Verified 06/18/16 20:25 - Medications Medications: Current Medications Acetaminophen/Butalbital/Caffeine (Fioricet) 1 tab PO Q6 PRN PRN Reason: pain 4-7 Last Admin: 09/01/17 07:03 Dose: 1 tab Aspirin (Aspirin Chewable) 81 mg PO DAILY [facility] Last Admin: 09/01/17 08:28 Dose: 81 mg Cyclobenzaprine HCl (Flexeril) 10 mg PO BID PRN PRN Reason: Muscle spasm Ferrous Sulfate (Feosol) 325 mg PO DAILY [facility] Hydrochlorothiazide (Hydrodiuril) 25 mg PO DAILY [facility] Last Admin: 09/01/17 08:28 Dose: 25 mg Oxcarbazepine (Trileptal) 900 mg PO BID [facility] Last Admin: 09/01/17 08:29 Dose: 900 mg Valsartan (Diovan) 80 mg PO DAILY [facility] Last Admin: 09/01/17 08:28 Dose: 80 mg Venlafaxine HCl (Effexor Xr) 112.5 mg PO [facility] Last Admin: 09/01/17 08:28 Dose: 112.5 mg Physical Exam - Constitutional Appears: Non-toxic - Head Exam Head Exam: NORMAL INSPECTION - Eye Exam Eye Exam: Normal appearance - ENT Exam ENT Exam: Mucous Membranes Moist - Neck Exam Neck exam: Positive for: Normal Inspection - Respiratory Exam Respiratory Exam: NORMAL BREATHING PATTERN - Cardiovascular Exam Cardiovascular Exam: REGULAR RHYTHM - GI/Abdominal Exam GI & Abdominal Exam: Normal Bowel Sounds - Rectal Exam Rectal Exam: Deferred - Extremities Exam Extremities exam: Negative for: pedal edema - Back Exam Back exam: NORMAL INSPECTION - Neurological Exam Neurological exam: Alert, Oriented x3 - Psychiatric Exam Psychiatric exam: Normal Affect - Skin Skin Exam: Normal Color Results - Vital Signs Recent Vital Signs: Last Vital Signs Temp 97.6 F 09/01/17 08:01 Pulse 61 09/01/17 08:01 Resp 18 09/01/17 08:01 BP 120/75 09/01/17 08:01 Pulse Ox 100 09/01/17 08:01 - Labs Result Diagrams: 09/01/17 05:40 09/01/17 05:40 Labs: Laboratory Results - last 24 hr 08/31/17 09/01/17 09/01/17 16:20 05:40 05:40 WBC 9.3 RBC 4.36 Hgb 13.4 Hct 39.4 MCV 90.3 MCH 30.8 MCHC 34.1 RDW 12.6 Plt Count 354 MPV 7.9 Neut % (Auto) 62.9 Lymph % (Auto) 27.8 [place] % (Auto) 7.0 Eos % (Auto) 1.8 Baso % (Auto) 0.5 Neut # 5.9 Lymph # 2.6 [place] # 0.7 Eos # 0.2 Baso # 0.0 Sodium 132 Potassium 3.3 L Chloride 95 L Carbon Dioxide 26 Anion Gap 14 BUN 10 Creatinine 0.5 L Est GFR ( Amer) > 60 Est GFR (Non-Af Amer) > 60 Random Glucose 136 H Calcium 9.1 Total Bilirubin 0.4 AST 28 ALT 56 H Alkaline Phosphatase 126 Troponin I < 0.0120 < 0.0120 Total Protein 7.8 Albumin 4.6 Globulin 3.3 Albumin/Globulin Ratio 1.4 - EKG Data EKG Interpreted by: Myself EKG shows normal: Sinus rhythm Assessment & Plan (1) Palpitations Assessment and Plan: no evidence of arrhythmia on monitor. I recommend d/c home. can schedule outpatient monitor Status: Acute
[2017-09-01 12:23] VITALS: BP 110/67; PULSE 65; TEMP 98; O2SAT 99
== END 2017-09-01 13:47 | disposition home or self-care (01) ==
LOC: H.ER 06:48 → H.ERHOLD 09:50 → H.TEL 11:13
PROVIDERS: ADMIT Family Medicine; ATTEND Family Medicine
DX: R00.2 Palpitations (principal); Z98.2 Presence of cerebrospinal fluid drainage device; E11.9 Type 2 diabetes mellitus without complications; I10 Essential (primary) hypertension; J45.909 Unspecified asthma, uncomplicated; Z86.73 Personal history of transient ischemic attack (TIA), and cerebral infarction without residual deficits; E78.00 Pure hypercholesterolemia, unspecified; Z88.6 Allergy status to analgesic agent; Z88.5 Allergy status to narcotic agent; G40.909 Epilepsy, unspecified, not intractable, without status epilepticus; F32.9 Major depressive disorder, single episode, unspecified; F41.9 Anxiety disorder, unspecified
CPT/HCPCS: 36415; 70450; 71020; 80053; 81025; 84484; 85025; 93005; 99285; G0378

== ENCOUNTER 2018-06-23 00:11 | Emergency (ER) | payer MEDICAID ==
[2018-06-23 00:26] VITALS: BP 109/62; PULSE 62; RESP 18; TEMP 98.3; O2SAT 99
[2018-06-23 01:08] LABS: BASO # 0.1 K/uL (0.0-0.2); BASO % 0.7 % (0.0-2.0); EOS # 0.1 K/uL (0.0-0.7); EOS % 1.3 % (0.0-4.0); LYMPH # 3.5 K/uL (1.0-4.3); MEAN CELL VOLUME 89.3 fl (81.0-99.0); MEAN CORPUSCULAR HEMOGLOBIN 30.8 pg (27.0-31.0); MEAN CORPUSCULAR HGB CONC 34.5 g/dL (33.0-37.0); MEAN PLATELET VOLUME 7.9 fl (7.2-11.7); MONO # 0.9 K/uL (0.0-0.8); NEUT # 6.4 K/uL (1.8-7.0); RBC 4.21 Mil/uL (3.80-5.20); RED CELL DISTRIBUTION WIDTH 12.6 % (11.5-14.5)
[2018-06-23 01:20] LABS: BLOOD UREA NITROGEN 13 mg/dl (7-17); CALCIUM 9.5 mg/dL (8.4-10.2); GFR NON-AFRICAN AMERICAN > 60
[2018-06-23 01:28] LABS: INR 1.1; PARTIAL THROMBOPLASTIN TIME 31.6 Seconds (25.6-37.1); PROTHROMBIN TIME 12.2 Seconds (9.8-13.1)
--- NOTE | 2018-06-23 01:50 | ED PDOC ---
HPI: General Adult Time Seen by Provider: 06/23/18 00:17 Chief Complaint (Nursing): Chest Pain Chief Complaint (Provider): Anxiety, Chest Pain, Headache History Per: Patient History/Exam Limitations: no limitations Onset/Duration Of Symptoms: Days (x2) Current Symptoms Are (Timing): Still Present Additional Complaint(s): 53 year old female with an extensive pmhx presents to the ED for several complaints. For the past two days, pt reports "feeling unwell." She also notes she is nervous about multiple outpatient appts she has coming up, including breast mammogram / US, bone density scan, and eval of varicose veins. Patient reports a hx of anxiety with some family stressors. Additionally, she is complaining of non-radiating, intermittent chest pain for 3 days not associated with shortness of breath, and a throbbing headache, non-thunder clap, not maximal at onset, and without neck stiffness. PMD: Martha Cole Past Medical History Reviewed: Historical Data, Nursing Documentation, Vital Signs Vital Signs: Last Vital Signs Temp 98.3 F 06/23/18 00:24 Pulse 62 06/23/18 00:24 Resp 18 06/23/18 00:24 BP 109/62 06/23/18 00:24 Pulse Ox 99 06/23/18 01:59 - Medical History PMH: Anemia, Anxiety, Arthritis, Asthma, Depression, Diabetes, HTN, Hypercholesterolemia, Seizures, TIA Denies: Hepatitis, HIV, Chronic Kidney Disease, Sexually Transmitted Disease - Surgical History Surgical History: Cholecystectomy, - Family History Family History: States: Unknown Family Hx - Living Arrangements Living Arrangements: With Family - Social History Current smoker - smoking cessation education provided: No Alcohol: None Drugs: Denies - Home Medications Home Medications: Ambulatory Orders Medication Instructions Recorded Acetaminophen/Butalbital/Caf 1 tab PO Q6H PRN 04/07/17 [Fioricet] Cyclobenzaprine [Flexeril] 10 mg PO BID PRN 04/07/17 Ferrous Sulfate [Ferosul] 325 mg PO DAILY 04/07/17 Oxcarbazepine [Trileptal] 900 mg PO BID 04/07/17 Valsartan [Diovan] 80 mg PO DAILY 04/07/17 Venlafaxine [Effexor XR] 112.5 mg PO QAM 04/07/17 hydroCHLOROthiazide [Hydrodiuril] 25 mg PO DAILY #30 tab 04/08/17 Acetaminophen/Butalbital/Caf 1 - 2 tab PO Q6 PRN #20 tab 05/29/17 [Fioricet] Aspirin [Aspirin Chewable] 81 mg PO DAILY chew 09/01/17 - Allergies Allergies/Adverse Reactions: Allergies Allergy/AdvReac Type Severity Reaction Status Date / Time oxycodone HCl [From Percocet] Allergy SWELLING Verified 06/23/18 00:24 tramadol Allergy RASH Verified 06/23/18 00:24 Review of Systems ROS Statement: Except As Marked, All Systems Reviewed And Found Negative Constitutional: Positive for: Other (feeling "unwell") Cardiovascular: Positive for: Chest Pain (intermittent) Respiratory: Negative for: Shortness of Breath Neurological: Positive for: Headache (throbbing) Psych: Positive for: Anxiety Physical Exam - Reviewed Nursing Documentation Reviewed: Yes Vital Signs Reviewed: Yes - Physical Exam Appears: Positive for: No Acute Distress (but anxious appearning) Head Exam: Positive for: ATRAUMATIC, NORMAL INSPECTION, NORMOCEPHALIC Skin: Positive for: Normal Color, Warm, Dry Eye Exam: Positive for: Normal appearance, EOMI, PERRL ENT: Positive for: Normal ENT Inspection Neck: Positive for: Normal, Painless ROM, Supple Cardiovascular/Chest: Positive for: Regular Rate, Rhythm Respiratory: Positive for: Normal Breath Sounds. Negative for: Accessory Muscle Use, Respiratory Distress Gastrointestinal/Abdominal: Positive for: Normal Exam, Soft. Negative for: Tenderness Back: Positive for: Normal Inspection Extremity: Positive for: Normal ROM Neurologic/Psych: Positive for: Alert, Oriented (x3). Negative for: Motor/ Sensory Deficits - Laboratory Results Result Diagrams: 06/23/18 01:04 06/23/18 01:04 - ECG ECG: Positive for: Interpreted By Me, Viewed By Me ECG Rhythm: Positive for: Normal ST Segment, Sinus Rhythm (normal). Negative for: ST/T Changes O2 Sat by Pulse Oximetry: 99 (RA) Pulse Ox Interpretation: Normal Medical Decision Making Medical Decision Making: A/P: patient with extensive pmhx presenting with multiple different complaints --pt appears comfortable, in NAD, with stable vitals --EKG shows no ischemic disease, no s/t wave changes --pts sx most likely related to anxiety, psychosomatic complaints --will obtain labs to r/o cardiac involvement, respiratory cause, electrolytes or other cause 0031 --EKG --Alcohol serum --BMP --Urine drug screen --Trop I --CBC with differential --PT / PTT --CXR --Toradol 30mg IVP 300 --Workup negative, advised patient of results --Offered patient OBS admission for chest pain precautions, patient requesting to followup as outpatient instead --Patient is well appearing with stable vitals, suitable for outpatient followup Scribe Attestation: Documented by Julissa Serrano, acting as a scribe for Kenneth Tiwari MD. Provider Scribe Attestation: All medical record entries made by the Scribe were at my direction and personally dictated by me. I have reviewed the chart and agree that the record accurately reflects my personal performance of the history, physical exam, medical decision making, and the department course for this patient. I have also personally directed, reviewed, and agree with the discharge instructions and disposition. Disposition - Clinical Impression Clinical Impression: Atypical chest pain - Patient ED Disposition Is Patient to be Admitted: No - Disposition Referrals: Boubacar Villalpando MD [Family Provider] - Disposition: Routine/Home Disposition Time: 03:06 Condition: STABLE Instructions: Chest Pain That Is Not Caused by the Heart (DC) Forms: [facility] (Nepali)
[2018-06-23 02:34] LABS: BARBITURATES, UR POSITIVE (NEGATIVE); BENZODIAZEPINES, UR NEGATIVE (NEGATIVE); OPIATES, UR NEGATIVE (NEGATIVE); PHENCYCLIDINE, UR NEGATIVE (NEGATIVE)
--- NOTE | 2018-06-23 09:44 | CARD ---
APPROVED REPORT Date of service: 06/23/2018 EKG Measurement Heart [id number] <Conclusion> Sinus bradycardia prolonged QT Abnormal ECG
--- NOTE | 2018-06-23 10:33 | RAD ---
Date of service: 06/23/2018 HISTORY: cp COMPARISON: 08/31/2017 TECHNIQUE: Chest PA and lateral FINDINGS: LUNGS: There is stable appearance of the lung torres without new focal infiltrate or CHF. PLEURA: No significant pleural effusion identified. No pneumothorax apparent. CARDIOVASCULAR: No interval change. No new aortic enlargement is seen. OSSEOUS STRUCTURES: No change. VISUALIZED UPPER ABDOMEN: Normal. OTHER FINDINGS: Ventriculoperitoneal shunt catheter overlies the chest and neck. IMPRESSION: No active disease.
== END 2018-06-23 03:30 | disposition home or self-care (01) ==
LOC: H.ER 00:11
DX: R07.9 Chest pain, unspecified (principal); E11.9 Type 2 diabetes mellitus without complications; I10 Essential (primary) hypertension; J45.909 Unspecified asthma, uncomplicated; Z86.73 Personal history of transient ischemic attack (TIA), and cerebral infarction without residual deficits; Z88.5 Allergy status to narcotic agent; Z79.82 Long term (current) use of aspirin
CPT/HCPCS: 71046; 80048; 80320; 80324; 80345; 80346; 80349; 80353; 80358; 80361; 83992; 84484; 85025; 85610; 85730; 93005; 96374; 99283; J1885

== ENCOUNTER 2018-08-27 15:30 | Emergency (ER) | payer MEDICAID ==
[2018-08-27] MEDS ORDERED: Sodium Chloride 0.9% 1,000 ML IV STA (15:58)
--- NOTE | 2018-08-27 16:37 | ED PDOC ---
HPI:Nausea, Vomiting, Diarrhea Time Seen by Provider: 08/27/18 15:43 Chief Complaint (Nursing): Dizziness/Lightheaded Chief Complaint (Provider): Dizziness/Lightheaded History Per: Patient History/Exam Limitations: other (lethargic) Onset/Duration Of Symptoms: Days (x1 hour) Current Symptoms Are (Timing): Intermittent Episodes Have you had recent travel within the past 21 days to any of the following countries: [place], [place], [place] or [place]?: No Additional Complaint(s): Tran Meyer is a 53 year old female with a past medical history of anxiety, depression, hypertension, and diabetes, who presents to the emergency department complaining of intermittent vomiting, onset x1 day, that is associated with chest pain, stomach pain and non vertiginous dizziness that was acutely 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 Patient states she had to go to her 15 year old son's high school to talk to him about being bullied on social media. She states that this made her more anxious and that she started to feel even more lightheaded and nauseous and felt that she will pass out. Patient denies diarrhea, alcohol or drug use, sick contact or travel. PMD: Boubacar Villalpando Past Medical History Reviewed: Historical Data, Nursing Documentation, Vital Signs Vital Signs: Last Vital Signs Temp 96.7 F L 08/27/18 15:32 Pulse 74 08/27/18 15:32 Resp 16 08/27/18 15:32 BP 128/69 08/27/18 15:32 Pulse Ox 99 08/27/18 15:32 - Medical History PMH: Anemia, Anxiety, Arthritis, Asthma, Depression, Diabetes, HTN, Hypercholesterolemia, Seizures, TIA Denies: Hepatitis, HIV, Chronic Kidney Disease, Sexually Transmitted Disease - Surgical History Surgical History: Cholecystectomy, - Family History Family History: States: Diabetes, Hypertension - Home Medications Home Medications: Ambulatory Orders Medication Instructions Recorded Acetaminophen/Butalbital/Caf 1 tab PO Q6H PRN 04/07/17 [Fioricet] Cyclobenzaprine [Flexeril] 10 mg PO BID PRN 04/07/17 Ferrous Sulfate [Ferosul] 325 mg PO DAILY 04/07/17 Oxcarbazepine [Trileptal] 900 mg PO BID 04/07/17 Valsartan [Diovan] 80 mg PO DAILY 04/07/17 Venlafaxine [Effexor XR] 112.5 mg PO QAM 04/07/17 hydroCHLOROthiazide [Hydrodiuril] 25 mg PO DAILY #30 tab 04/08/17 Acetaminophen/Butalbital/Caf 1 - 2 tab PO Q6 PRN #20 tab 05/29/17 [Fioricet] Aspirin [Aspirin Chewable] 81 mg PO DAILY chew 09/01/17 Meclizine HCl 50 mg PO BID PRN #30 tablet 08/27/18 Ondansetron ODT [Zofran ODT] 1 odt PO Q6 PRN #20 odt 08/27/18 - Allergies Allergies/Adverse Reactions: Allergies Allergy/AdvReac Type Severity Reaction Status Date / Time oxycodone HCl [From Percocet] Allergy SWELLING Verified 06/23/18 00:24 tramadol Allergy RASH Verified 06/23/18 00:24 Review of Systems ROS Statement: Except As Marked, All Systems Reviewed And Found Negative Constitutional: Positive for: Fever Cardiovascular: Positive for: Chest Pain Gastrointestinal: Positive for: Nausea, Vomiting, Abdominal Pain. Negative for: Diarrhea Neurological: Positive for: Dizziness, Other (lightheaded) Psych: Positive for: Anxiety Physical Exam - Reviewed Nursing Documentation Reviewed: Yes Vital Signs Reviewed: Yes - Physical Exam Appears: Positive for: Non-toxic, In Acute Distress (acute gastrointestinal distress; uncooperative) Head Exam: Positive for: ATRAUMATIC, NORMOCEPHALIC Skin: Positive for: Warm, Dry Eye Exam: Positive for: Normal appearance, EOMI, PERRL. Negative for: Nystagmus ENT: Positive for: Pharynx Is (clear), Other (dry mucous membranes) Neck: Positive for: Painless ROM, Supple Cardiovascular/Chest: Positive for: Regular Rate, Rhythm. Negative for: Chest Non Tender (reproducible chest wall tenderness), Murmur Respiratory: Positive for: Normal Breath Sounds. Negative for: Respiratory Distress Gastrointestinal/Abdominal: Positive for: Normal Exam, Soft, Tenderness (diffuse ttp ). Negative for: Mass, Distended, Guarding, Rebound Back: Positive for: Normal Inspection. Negative for: Muscle Spasm Extremity: Positive for: Normal ROM. Negative for: Deformity Lymphatic: Negative for: Adenopathy Neurologic/Psych: Positive for: Mood/Affect (anxious/flat), Other (sleepy with mild slurred speech). Negative for: Motor/Sensory Deficits - Laboratory Results Result Diagrams: 08/27/18 17:02 08/27/18 17:02 - ECG ECG: Positive for: Interpreted By Me ECG Rhythm: Positive for: Normal QRS, Normal ST Segment, Sinus Rhythm (75) Rate: 75 O2 Sat by Pulse Oximetry: 99 (RA) Pulse Ox Interpretation: Normal Medical Decision Making Medical Decision Making: Initial time: 15:56 Initial Impression: Vomiting Differential diagnosis includes but not limited to gastritis, gastroenteritis, GERD, dyspepsia, dehydration, anxiety, and intoxication. Plan: --Ekg --Alcohol serum --Cmp --Lactic acid plasma --Lipase --Magnesium --Phosphorous --Troponin I --Drug screen urine --ED urine dipstick POC --CBC with differential --PTT --PT --Oxcarbazepine Metabolite --Sodium chloride 1,000 ml --Zofran inj 8 mg IV --Saline lock --Glucose blood POC Time: 1999 --Discussed findings with patient, she is tolerating PO in ER. Patient is stable for discharge home. - Scribe Attestation: Documented by Charlie Smith, acting as a scribe for Ary Valdez MD. Provider Scribe Attestation: All medical record entries made by the Scribe were at my direction and p ersonally dictated by me. I have reviewed the chart and agree that the record accurately reflects my personal performance of the history, physical exam, medical decision making, and the department course for this patient. I have also personally directed, reviewed, and agree with the discharge instructions and disposition. Disposition - Clinical Impression Clinical Impression: Anxiety, Vomiting - Disposition Referrals: Boubacar Villalpando MD [Family Provider] - (FOLLOW UP WITH YOUR DOCTOR TOMORROW FOR REEVALUATION) Disposition Time: 20:00 Condition: STABLE Prescriptions: Meclizine HCl 50 mg PO BID PRN #30 tablet PRN Reason: Dizziness Ondansetron ODT [Zofran ODT] 1 odt PO Q6 PRN #20 odt PRN Reason: Nausea/Vomiting Instructions: Anxiety, Adult (DC), Nausea and Vomiting, Adult (DC) Forms: [facility] ED School/Work Excuse
[2018-08-27 17:14] LABS: BASO % 0.3 % (0.0-2.0); EOS # 0.1 K/uL (0.0-0.7); EOS % 0.5 % (0.0-4.0); HEMOGLOBIN 12.9 g/dL (12.0-16.0); LYMPH # 1.6 K/uL (1.0-4.3); LYMPH % 13.5 % (20.0-40.0); MEAN CELL VOLUME 89.3 fl (81.0-99.0); MEAN CORPUSCULAR HEMOGLOBIN 30.3 pg (27.0-31.0); MEAN CORPUSCULAR HGB CONC 33.9 g/dL (33.0-37.0); MEAN PLATELET VOLUME 8.3 fl (7.2-11.7); MONO # 0.6 K/uL (0.0-0.8); MONO % 5.5 % (0.0-10.0); NEUT # 9.2 K/uL (1.8-7.0); NEUT % 80.2 % (50.0-75.0); NRBC % 0.1 % (0.0-0.0); RBC 4.25 Mil/uL (3.80-5.20); WHITE BLOOD COUNT 11.5 K/uL (4.8-10.8)
[2018-08-27 17:18] LABS: PROTHROMBIN TIME 11.7 Seconds (9.8-13.1)
[2018-08-27 17:20] LABS: PARTIAL THROMBOPLASTIN TIME 25.7 Seconds (25.6-37.1)
[2018-08-27 17:27] LABS: ALB/GLOB RATIO 1.5 (1.0-2.1); ALBUMIN 4.6 g/dL (3.5-5.0); ALT/SGPT 39 U/L (9-52); AST/SGOT 35 U/L (14-36); BLOOD UREA NITROGEN 15 mg/dl (7-17); CALCIUM 9.3 mg/dL (8.4-10.2); GFR NON-AFRICAN AMERICAN > 60; LIPASE 19 U/L (23-300)
[2018-08-27 19:45] LABS: BARBITURATES, UR POSITIVE (NEGATIVE); BENZODIAZEPINES, UR NEGATIVE (NEGATIVE); OPIATES, UR NEGATIVE (NEGATIVE); PHENCYCLIDINE, UR NEGATIVE (NEGATIVE)
[2018-08-27] MEDS ORDERED: Potassium Chloride 20 mEq ER Tab PO STA (20:03)
[2018-08-27] MEDS ORDERED: Potassium Chloride 20 mEq ER Tab PO ONE (20:12)
[2018-08-28 00:36] VITALS: BP 116/71; PULSE 75; RESP 18; TEMP 96.7; O2SAT 99
--- NOTE | 2018-08-28 09:07 | CARD ---
APPROVED REPORT Date of service: 08/27/2018 EKG Measurement Heart [id number] <Conclusion> Normal sinus rhythm Normal ECG
== END 2018-08-27 20:55 | disposition home or self-care (01) ==
LOC: H.ER 15:30
DX: R11.10 Vomiting, unspecified (principal); F41.9 Anxiety disorder, unspecified; E11.9 Type 2 diabetes mellitus without complications; E78.00 Pure hypercholesterolemia, unspecified; I10 Essential (primary) hypertension; Z86.73 Personal history of transient ischemic attack (TIA), and cerebral infarction without residual deficits; Z79.899 Other long term (current) drug therapy; Z88.5 Allergy status to narcotic agent
CPT/HCPCS: 80053; 80183; 80320; 80324; 80345; 80346; 80349; 80353; 80358; 80361; 83605; 83690; 83735; 83992; 84100; 84484; 85025; 85610; 85730; 93005; 96374; 99285; J2405; J7030

== ENCOUNTER 2018-10-02 20:50 | Emergency (ER) | payer MEDICAID ==
[2018-10-02 21:00] VITALS: BP 132/77; PULSE 78; RESP 16; TEMP 97.7; O2SAT 97
--- NOTE | 2018-10-02 21:47 | ED PDOC ---
Upper Extremity Pain/Injury Time Seen by Provider: 10/02/18 21:21 Chief Complaint (Nursing): Finger,Hand,&Wrist Chief Complaint (Provider): finger pain History Per: Patient History/Exam Limitations: no limitations Additional Complaint(s): 53 y/o F with HTN, DM, HL who presents with Left hand pain for the past 3 days after hitting it while cleaning a closet. Pt states that she hit her fingers and bent them back very hard about 3 - 4 days ago. She has been using Ibuprofen with no significant improvement as the fingers remain swollen and ecchymotic. Denies numbness or tingling in fingers. Last took Ibuprofen yesterday evening. Past Medical History Reviewed: Historical Data, Nursing Documentation, Vital Signs Vital Signs: Last Vital Signs Temp 97.7 F 10/02/18 20:58 Pulse 78 10/02/18 20:58 Resp 16 10/02/18 20:58 BP 132/77 10/02/18 20:58 Pulse Ox 97 10/02/18 20:58 - Medical History PMH: Anemia, Anxiety, Arthritis, Asthma, Depression, Diabetes, HTN, Hypercholesterolemia, Seizures, TIA Denies: Hepatitis, HIV, Chronic Kidney Disease, Sexually Transmitted Disease - Surgical History Surgical History: Cholecystectomy, - Family History Family History: States: Unknown Family Hx, Diabetes, Hypertension - Home Medications Home Medications: Ambulatory Orders Medication Instructions Recorded Acetaminophen/Butalbital/Caf 1 tab PO Q6H PRN 04/07/17 [Fioricet] Cyclobenzaprine [Flexeril] 10 mg PO BID PRN 04/07/17 Ferrous Sulfate [Ferosul] 325 mg PO DAILY 04/07/17 Oxcarbazepine [Trileptal] 900 mg PO BID 04/07/17 Valsartan [Diovan] 80 mg PO DAILY 04/07/17 Venlafaxine [Effexor XR] 112.5 mg PO QAM 04/07/17 hydroCHLOROthiazide [Hydrodiuril] 25 mg PO DAILY #30 tab 04/08/17 Acetaminophen/Butalbital/Caf 1 - 2 tab PO Q6 PRN #20 tab 05/29/17 [Fioricet] Aspirin [Aspirin Chewable] 81 mg PO DAILY chew 09/01/17 Meclizine HCl 50 mg PO BID PRN #30 tablet 08/27/18 Ondansetron ODT [Zofran ODT] 1 odt PO Q6 PRN #20 odt 08/27/18 Naproxen 500 mg PO BID PRN 5 Days ect 10/02/18 - Allergies Allergies/Adverse Reactions: Allergies Allergy/AdvReac Type Severity Reaction Status Date / Time oxycodone HCl [From Percocet] Allergy SWELLING Verified 10/02/18 20:58 tramadol Allergy RASH Verified 10/02/18 20:58 Review of Systems Musculoskeletal: Positive for: Hand Pain Physical Exam - Reviewed Nursing Documentation Reviewed: Yes Vital Signs Reviewed: Yes - Physical Exam Appears: Positive for: Uncomfortable Head Exam: Positive for: ATRAUMATIC Skin: Positive for: Normal Color Extremity: Positive for: Tenderness (+ ecchymosis and edema in distal 4th and 5th Left digits with tenderness on palpation over DIP and PIP on 4th left digit. + tenderness on palpation on palm of hand. No deformity noted.), Capillary Refill (< 2 sec) Neurologic/Psych: Positive for: Alert, Oriented - ECG O2 Sat by Pulse Oximetry: 97 Medical Decision Making Medical Decision Making: Left hand x-ray Toradol 15mg IM x 1 X-ray reviewed: likely small non-displaced fracture of 4th left digit proximal to DIP. Finger splint and referral to hand surgeon. Stable for d/c home. Disposition - Clinical Impression Clinical Impression: Finger contusion - Disposition Referrals: Henry Matias MD [Staff Provider] - Disposition: Routine/Home Disposition Time: 23:15 Condition: STABLE Additional Instructions: F/u with hand surgeon, Dr. Matias, for further evaluation of finger pain and swelling. Keep splint on for immobilization and comfort. Take Naproxen for pain. Prescriptions: Naproxen 500 mg PO BID PRN 5 Days ect PRN Reason: Pain, Moderate (4-7) Instructions: Contusion (DC) Forms: [facility] ([place]inian) Print Language: GREENLANDIC
--- NOTE | 2018-10-03 08:58 | RAD ---
Date of service: 10/02/2018 PROCEDURE: Left Thumb radiographs. HISTORY: Left thumb pain after fall COMPARISON: None. TECHNIQUE: AP radiograph of the left hand, as well as spot oblique and lateral images of thumb were obtained. FINDINGS: LEFT THUMB: Normal left thumb, without fracture or focal lesion. Remainder of the left hand (as seen on the AP view) grossly unremarkable. Multiple sesamoid bones at the 1st metacarpal phalangeal joint are noted. Some mild benign cystic changes likely arthro pathic at the 1st metacarpal head also incidentally noted. JOINTS: Mild diffuse joint space narrowing most pronounced at the distal interphalangeal joints 2nd through 4th-also noted 1st carpal metacarpal and 1st metacarpal phalangeal joint. Radial side of 1st interphalangeal joint also affected. SOFT TISSUES: Normal. OTHER FINDINGS: None. IMPRESSION: No fracture or dislocation. Mild degenerative changes as above.
== END 2018-10-02 23:15 | disposition home or self-care (01) ==
LOC: H.ER 20:50
DX: S60.012A Contusion of left thumb without damage to nail, initial encounter (principal); W22.8XXA Striking against or struck by other objects, initial encounter; Y92.89 Other specified places as the place of occurrence of the external cause; E11.9 Type 2 diabetes mellitus without complications; E78.00 Pure hypercholesterolemia, unspecified; J45.909 Unspecified asthma, uncomplicated; I10 Essential (primary) hypertension; Z88.5 Allergy status to narcotic agent
CPT/HCPCS: 29130; 73140; 81025; 96372; 99284; J1885